=== PATIENT | female | born 1995 | race Caucasian/White ===

== ENCOUNTER 2022-02-06 12:46 | Outpatient (CLI) | payer OTHER, SELFPAY ==
--- NOTE | 2022-02-06 13:00 | CRLHL7_ITS ---
For Patients: As a result of the Century Cures Act, medical imaging exams and procedure reports are released immediately into your electronic medical record. You may view this report before your referring provider. If you have questions, please contact your health care provider. CLINICAL HISTORY: Early TECHNIQUE: 2D martin scale and color Doppler images were acquired of the pelvis using a transvaginal approach. FINDINGS: There is no intrauterine or ectopic . Both ovaries are normal. Right ovary measures 3.3 x 2.2 x 2.3 cm. Left ovary measures 2.8 x 2.0 x 2.2 cm. No pelvic free fluid or adnexal mass. No uterine fibroid. Small cervical nabothian cysts. Endometrial thickness 9 millimeters. IMPRESSION: No intrauterine or ectopic . Dictated by Mehul Underwood MD @ 02/06/2022 1:52:03 PM (Electronically Signed)
== END 2022-02-06 12:47 | disposition home or self-care (01) ==
LOC: US 12:47
PROVIDERS: Visit Provider Advanced Practice Midwife
DX: Z34.91 Encounter for supervision of normal pregnancy, unspecified, first trimester (principal)
CPT/HCPCS: 76817

== ENCOUNTER 2022-02-06 14:08 | Outpatient (CLI) | payer SELFPAY ==
[2022-02-06 17:28] LABS: HCG Qualitative Serum* Positive (Negative)
== END 2022-02-06 14:09 | disposition home or self-care (01) ==
PROVIDERS: Visit Provider Advanced Practice Midwife
DX: Z34.91 Encounter for supervision of normal pregnancy, unspecified, first trimester (principal); O03.9 Complete or unspecified spontaneous abortion without complication
CPT/HCPCS: 76817; 84443; 84703; 86900; 86901

== ENCOUNTER 2022-03-20 14:28 | Outpatient (CLI) | payer OTHER, SELFPAY | END 2022-03-20 14:29 | disposition home or self-care (01) | LOC: NFLDREF 15:23 | PROVIDERS: Visit Provider Advanced Practice Midwife | DX: E03.9 Hypothyroidism, unspecified (principal) | CPT/HCPCS: 84443 ==

== ENCOUNTER 2022-09-04 07:13 | Outpatient (CLI) | payer OTHER, SELFPAY ==
--- NOTE | 2022-09-04 07:15 | CRLHL7_ITS ---
For Patients: As a result of the Century Cures Act, medical imaging exams and procedure reports are released immediately into your electronic medical record. You may view this report before your referring provider. If you have questions, please contact your health care provider. INDICATION: First trimester scan, establish dates. COMPARISON: None. TECHNIQUE: Real-time martin-scale imaging of the pelvis was performed. FINDINGS: Intrauterine gestational sac is present. There is a normal-appearing yolk sac. Mean sac diameter is 3.6 cm. Yolk sac measures 3.5 millimeters. Right ovary normal. Left ovary unremarkable. heart rate 171 beats per minute. Bradner-rump length 2.2 cm, 9 weeks 0 days. IMPRESSION: Normal first trimester OB ultrasound exam. Gestational age calculated at 9 weeks 0 days with a sonographic due date of 04/09/2023. Dictated by Mehul Underwood MD @ 09/04/2022 10:41:11 AM (Electronically Signed)
== END 2022-09-04 07:14 | disposition home or self-care (01) ==
LOC: US 07:15
PROVIDERS: Visit Provider Advanced Practice Midwife
DX: Z34.91 Encounter for supervision of normal pregnancy, unspecified, first trimester (principal); Z3A.09 9 weeks gestation of pregnancy
CPT/HCPCS: 76817; 84443; 86592; 86703; 86762; 86787; 86803; 86850; 86900; 86901; 87086; 87340

== ENCOUNTER 2022-12-17 13:42 | Outpatient (CLI) | payer OTHER, SELFPAY | END 2022-12-17 13:43 | disposition home or self-care (01) | PROVIDERS: Visit Provider Physician Assistant | DX: E03.9 Hypothyroidism, unspecified (principal) | CPT/HCPCS: 84439; 84443 ==

== ENCOUNTER 2023-01-15 12:58 | Outpatient (CLI) | payer OTHER, SELFPAY ==
--- NOTE | 2023-01-15 13:00 | CRLHL7_ITS ---
For Patients: As a result of the Century Cures Act, medical imaging exams and procedure reports are released immediately into your electronic medical record. You may view this report before your referring provider. If you have questions, please contact your health care provider. INDICATION: Third trimester scan, evaluate growth. COMPARISON: 11/19/2022 TECHNIQUE: Real time martin scale imaging of the fetus was performed. FINDINGS: Sonographic imaging demonstrates a single living intrauterine gestation. Fetus demonstrates a regular cardiac rate of 154 beats per minute. Fetus has a transverse position. The placenta lies anteriorly. Amniotic fluid volume appears normal and there is a single deepest vertical pocket: 5.8 cm. The estimated weight is 1190gm which lies at the 29th %. On the prior OB ultrasound exam dated 11/19/2022 the estimated weight was at the 40th%. BPD 86th percentile. HC 51st percentile. AC 22nd percentile. FL 29th percentile. The HC/AC ratio measures 1.16 range (0.99-1.21). IMPRESSION: Sonographic gestational age 28 weeks 6 days and sonographic due date of 04/03/2023. Good correlation with dates. Estimated weight 29th percentile. Abdominal circumference 22nd percentile. Dictated by Mehul Underwood MD @ 01/18/2023 11:02:17 AM (Electronically Signed)
== END 2023-01-15 12:59 | disposition home or self-care (01) ==
LOC: US 13:00
PROVIDERS: Visit Provider Physician Assistant
DX: Z34.93 Encounter for supervision of normal pregnancy, unspecified, third trimester (principal); Z3A.28 28 weeks gestation of pregnancy
CPT/HCPCS: 76816; 84443; 86592

== ENCOUNTER 2023-01-21 07:56 | Outpatient (CLI) | payer OTHER, SELFPAY | END 2023-01-21 07:57 | disposition home or self-care (01) | LOC: NFLDREF 01-22 14:02 | PROVIDERS: Visit Provider Advanced Practice Midwife | DX: R73.09 Other abnormal glucose (principal); Z34.93 Encounter for supervision of normal pregnancy, unspecified, third trimester | CPT/HCPCS: 82951; 82952 ==

== ENCOUNTER 2023-02-05 12:01 | Outpatient (CLI) | payer OTHER, SELFPAY ==
--- NOTE | 2023-02-05 12:15 | CRLHL7_ITS ---
For Patients: As a result of the Century Cures Act, medical imaging exams and procedure reports are released immediately into your electronic medical record. You may view this report before your referring provider. If you have questions, please contact your health care provider. INDICATION: MARGINAL CORD INSERTION, GROWTH COMPARISON: 01/15/2023 TECHNIQUE: Real time martin scale imaging of the fetus was performed. FINDINGS: Sonographic imaging demonstrates a single living intrauterine gestation. Fetus demonstrates a regular cardiac rate of 142 beats per minute. Fetus has a vertex position. The placenta lies anteriorly. Amniotic fluid volume appears normal and there is a single deepest vertical pocket: 6.5 cm. The estimated weight is 1852gm which lies at the 53rd %. On the prior OB ultrasound exam dated 01/15/2023 the estimated weight was at the 29th%. BPD 90th percentile. HC 76th percentile. AC 65th percentile. FL 17th percentile. The HC/AC ratio measures 1.09 range (0.96-1.13). IMPRESSION: Sonographic gestational age 32 weeks 3 days and sonographic due date 03/30/2023. Sonographic age is 7 days ahead of the clinical age. Estimated weight 53rd percentile. Abdominal circumference 65th percentile. Dictated by Mehul Underwood MD @ 02/05/2023 12:36:25 PM (Electronically Signed)
== END 2023-02-05 12:02 | disposition home or self-care (01) ==
LOC: US 12:01
PROVIDERS: Visit Provider Advanced Practice Midwife
DX: O43.193 Other malformation of placenta, third trimester (principal); Z3A.32 32 weeks gestation of pregnancy
CPT/HCPCS: 76816

== ENCOUNTER 2023-02-22 10:34 | Outpatient (CLI) | payer OTHER, SELFPAY | END 2023-02-22 10:35 | disposition home or self-care (01) | LOC: NFLDREF 10:34 | PROVIDERS: Visit Provider Advanced Practice Midwife | DX: Z34.93 Encounter for supervision of normal pregnancy, unspecified, third trimester (principal); Z3A.33 33 weeks gestation of pregnancy | CPT/HCPCS: 84443 ==

== ENCOUNTER 2023-03-09 08:08 | Outpatient (CLI) | payer OTHER, SELFPAY ==
--- NOTE | 2023-03-09 08:15 | CRLHL7_ITS ---
For Patients: As a result of the Century Cures Act, medical imaging exams and procedure reports are released immediately into your electronic medical record. You may view this report before your referring provider. If you have questions, please contact your health care provider. INDICATION: Third trimester scan, evaluate growth. Marginal cord insertion followup. COMPARISON: 02.05.23 TECHNIQUE: Real time martin scale imaging of the fetus was performed. FINDINGS: Sonographic imaging demonstrates a single living intrauterine gestation. Fetus demonstrates a regular cardiac rate of 152 beats per minute. Fetus has a vertex position. The placenta lies anterior. Amniotic fluid volume appears normal and there is a single deepest vertical pocket: 6.7 cm. The estimated weight is 3316gm which lies at the 92nd %. On the prior OB ultrasound exam dated 02.05.23 the estimated weight was at the 53rd%. BPD 97th percentile. HC 93rd percentile. AC <97th percentile. FL 5th percentile. The HC/AC ratio measures 0.98 range (0.90-1.05). IMPRESSION: Sonographic gestational age 37 weeks 5 days and sonographic due date 03.25.23. The sonographic age is 12 days ahead of the clinical age. Estimated weight 92nd percentile. AC <97th percentile. Dictated by Mehul Underwood MD @ 03/09/2023 11:44:21 AM (Electronically Signed)
== END 2023-03-09 08:09 | disposition home or self-care (01) ==
LOC: US 08:09
PROVIDERS: Visit Provider Advanced Practice Midwife
DX: O43.193 Other malformation of placenta, third trimester (principal); Z3A.37 37 weeks gestation of pregnancy
CPT/HCPCS: 76816; 87081; 87653

== ENCOUNTER 2023-03-26 09:45 | Outpatient (CLI) | payer OTHER, SELFPAY ==
[2023-03-26 10:00] VITALS: PULSE 115; O2SAT 97
[2023-03-26 10:02] VITALS: BP 124/69; PULSE 106
[2023-03-26 10:16] VITALS: BP 124/74; PULSE 131
[2023-03-26 10:29] VITALS: PULSE 69; O2SAT 96
[2023-03-26 10:31] VITALS: BP 119/68; PULSE 90
--- NOTE | 2023-03-26 14:19 | PC.OBNST ---
NST Note NST Note Start: 03/26/23 10:16 Freq: ONCE Status: Active Protocol: Document 03/26/23 14:12 PRASHANT (Rec: 03/26/23 14:17 PRASHANT [id number]) NST Note 2 Para (# of births) 0 EDC 04/06/23 Gestational Age In Weeks & Days 38 Weeks & 3 Days High Risk Factors High Blood Pressure - Gestational Patient Presented with Complaint(s) of Headache Other Complaints Patient reported a CEBALLOS at home and high blood pressure readings from a home BP cuff. BP was within normal limits in hospital. It was noted that patient was using a family members BP cuff. A new cuff supplied. Patient will follow up in clinic Wednesday03/29/2023 Reactive Yes MILTON Crews RN Date 03/26/23 Reactive Yes MILTON Lopez RN Date 03/26/23 OB NST charge Yes Complete NST Note via Write Note Yes The provider's electronic signature indicates the NST is reactive/appropriate for gestational age. *Note to provider: If an addendum is required, open the patient's chart and click on the note under the Nurse/Allied Health tab.
== END 2023-03-26 11:40 | disposition home or self-care (01) ==
LOC: OB OUT 09:46 → OB 09:46
PROVIDERS: Visit Provider Advanced Practice Midwife
DX: O13.3 Gestational [pregnancy-induced] hypertension without significant proteinuria, third trimester (principal); R51.9 Headache, unspecified; Z3A.38 38 weeks gestation of pregnancy
CPT/HCPCS: 59025; 99213

== ENCOUNTER 2023-04-01 13:00 | Inpatient (IN) | payer OTHER, SELFPAY ==
[2023-04-01] VITALS (14 sets, daily range): BP systolic 121–154; BP diastolic 67–90; PULSE 81–116; RESP 16; TEMP 36.6–36.8; O2SAT 98; BMI 41.4
[2023-04-01 11:01] LABS: Hematocrit 39.2 % (33.0-51.0); Mean Corpuscular HGB Conc 33 gm/dL (32-36); Mean Corpuscular Hemoglobin 28 pg (26-34); Mean Corpuscular Volume 84 fL (80-100); Platelet Count* 245 K/uL (140-440); Red Blood Count 4.68 m/uL (4.00-5.20); White Blood Count* 10.84 K/uL (4.50-11.00)
[2023-04-01 11:09] LABS: Slide Review Reflex No
[2023-04-01 11:58] LABS: Alanine Aminotransferase* 16 U/L (4-35); Aspartate Amino Transferase* 27 U/L (12-35); Blood Urea Nitrogen* 4 mg/dL (5-24); Creatinine* 0.7 mg/dL (0.5-1.5); Estimated Glomerular Filt Rate 122 ml/min
[2023-04-01 12:11] LABS: Total Protein Urine 7 mg/dL
[2023-04-01 12:12] LABS: Creatinine Urine 83.2 mg/dL
--- NOTE | 2023-04-01 13:52 | P.LDBA_ITS ---
Subjective History of Present Illness Time Seen by Provider: 12:45 Date Seen: 04/01/23 Specific Issues/Plans Partner-Kendell H & P done 03/18/23 by Adrian Rosen IOL for dates 04/13 1. Depression/Anxiety Taking Bupropion 150mg, not currently doing therapy, stable 2. Hypothyroid on Synthroid 75mcg TSH first-trimester 09/04/22: 2.58 TSH second-trimester 12/17/22: TSH 4.330, free T4 0.75. Increase Synthroid to 100 mcg daily recheck in 4 weeks TSH recheck at 28 weeks: 1.77 TSH 3rd trimester: increased, recheck in 4 weeks 3. ADHD was on Concerta prior to , discussed restarting if she wants if anxiety is worsening does not have provider currently managing this 4. Recommended ASA (BMI and prime) 5. Marginal cord insertion. Growth US Q4 wks starting at 28-32 weeks. 28 weeks: 29%ile 6. Failed 1hr GTT (150). 3hr completed, passed all 4 values. 7. Covid positive at 34 weeks. Growth u/s at 36 weeks: EFW 92%, SDP 6.7, AC >97% COVID: vaccinated 2020, not boosted Flu: 09/04/2022 Tdap: 01/28/2023 32wk Mental Health: 02/05/2023 Comments: Slime is being admitted to Labor and Delivery for gestational hypertension. She is a 27 year old G 2 P 0010 at?39.2 weeks gestation. Her full history and physical was dictated by Adrian Rosen on 03/18/23. Please see this for details. Slime has been being followed closely in the clinic. She recently has had increased swelling, weight gain, and blood pressures were noted to be trending upward, but remained in the 130/80s. She has been monitoring BPs at home also, and they are frequently elevated, but it is thought that her cuff is not accurate (it has been compared to the clinic one). She presents today in clinic with a BP of 131/91. She was sent to L & D for further monitoring, where further BPs primarily in the 140s/90s range. Her labwork at this time, including a PC ratio, remains WNL. We reviewed the diagnosis of gestational hypertension and recommendation for IOL. She is agreeable to this plan. Her father is with her for support at this time, but her partner and mom will also be coming soon. She is planning an epidural for pain management. OB - Problem Based A/P Additional Plan (1) Encounter for induction of labor: Status: Acute (2) Gestational hypertension: Status: Acute (3) Supervision of normal first : Status: Acute Plan Assessment:? at 39.2 weeks gestation?? GBS Positive IOL for gestational hypertension complicated by: -Depression & anxiety -hypothyroid -ADHD, medication stopped in -marginal cord insertion -covid in Labor complicated by: -Gestational hypertension -EFW at 36 weeks 92% ? Plan:?? * Admit to L & D? * IOL for gestational hypertension. Options previously reviewed, decision made to proceed with cytotec. * IV access: saline lock for elevated BP and GBS * Monitoring: Continuous monitoring for elevated BP * Candidate for analgesia of choice.? Planning epidural for pain management * Start antibiotics for GBS prophylaxis when she starts becoming more active * Anticipate progress to NVD Delivery/Labor/Induction Plan Plan: induction Induction method: per misoprostol protocol OB Exam Physical Exam Vital signs: Pulse BP Pulse Ox 86 138/87 98 04/01/23 13:12 04/01/23 13:12 04/01/23 10:51 Narrative: VSS, afebrile? General Appearance:? Calm, cooperative.? No acute distress.? Normal affect.? Psychiatric Exam: Alert and oriented, appropriate affect? HEENT: normocephalic, neck supple, full ROM? Respiratory:? Symmetrical chest wall movement.? Normal respiratory effort.? Clear to auscultation? Cardiac:? regular rate and rhythm? Abdomen: Gravid, non tender? Extremities:? normal and +1 edema? Skin: warm, dry.??? Ctx:? mild, rare FHTs:? Baseline: 150.? Variability: min - mod.?? Accels: present.??? Decels:? none.? SVE: 1-2/80/-2, moderate, posterior? Membranes: intact? Detailed Labor and Delivery Exam Patient Gravid: Yes
[2023-04-01] MEDS: miSOPROStoL 25 MCG/0.25 TABLET VAGINAL ×4 (14:11→23:35)
[2023-04-02] VITALS (39 sets, daily range): BP systolic 106–135; BP diastolic 69–88; PULSE 61–111; RESP 12–18; TEMP 36.2–37.1; O2SAT 96–100
[2023-04-02] MEDS: miSOPROStoL 25 MCG/0.25 TABLET VAGINAL (02:36)
[2023-04-02] MEDS: LACTATED RINGERS 1000 ML 1,000 ML IV ×2 (02:58→06:42)
[2023-04-02] MEDS: LIDOCAINE 2% (PF) 5 ML VIAL EPIDURAL (03:45)
[2023-04-02] MEDS: ROPIVACAINE 0.2% 100 ml 100 ML 12 MG EPIDURAL (03:45)
--- NOTE | 2023-04-02 03:51 | P.ANBPRC_ITS ---
[facility] Medical History Hypothyroidism ?E03.9 - Hypothyroidism, unspecified (ICD-10) ADHD ?F90.9 - Attention-deficit hyperactivity disorder, unspecified type (ICD-10) Depression ?F32.A - Depression, unspecified (ICD-10) Surgical History History of thumb surgery ?Z98.890 - Other specified postprocedural states (ICD-10) Family History Mother Colon cancer Grandmother Colon cancer Social History Narrative: SOCIAL?? Education: some college?? Work: [employer]?? Partner: Kendell, public address system mechanic between jobs?? Lives with: Kendell?? Pets: 2 dogs, 3 cats and rabbit, not changing cat litter?? Abuse: Denies past/present?? Special Diet: No lactose?? Ok with a blood transfusion: yes?? Culture or synagogue beliefs: denies?? RISK FACTORS?? Exercise Times/wk: job is exercise?? Depression/Anxiety: History of depression/anxiety since she was a child?? ANNAMARIA: 11 PHQ 9: 9?? Seat Belt Use: Routinely Smoking: Denies past/present?? Alcohol/day: Denies while ?? Caffeine: none?? Drug Use: Denies past/present?? Chicken Pox: Yes as a child?? MRSA: Denies?? Plan for feeding baby: Breast What is your current living situation?: I presently have a place to live Problems where you live: no known problems In the past 12 months, utilities in danger of being shut off: no In past 12 months, lack of transportation kept you from medical appts, meetings, work, or getting things needed for daily living: no In the past 12 mos, have been you worried that your food would run out before you had money to buy more?: never true In the past 12 mos, the food you bought just didn't last and you didn't have money to buy more?: never true Smoking Status: Former smoker How often does anyone, including family, friends and others, physically hurt you : never How often does anyone, including family, friends and others, insult or talk down to you: never How often does anyone, including family, friends and others, threaten you with harm: never How often does anyone, including family, friends and others, scream or curse at you: never Little interest or pleasure in doing things: several days Feeling down, depressed, or hopeless: not at all Meds Home Medications and Allergies Home Medications Medication Instructions Recorded Confirmed Type prenat.vits,ilana,cee-fiwq-ouqct 1 tab PO QDAY 09/04/22 04/01/23 History aspirin 81 mg tablet,delayed 81 mg PO QDAY 11/19/22 04/01/23 History release (Adult Aspirin Regimen) famotidine 20 mg tablet 20 mg PO QDAY 03/29/23 04/01/23 History (Zantac-360 (famotidine)) Allergies Allergy/AdvReac Type Severity Reaction Status Date / Time lactose AdvReac Mild Gastrointestinal Verified 04/01/23 09:52 Upset Penicillins AdvReac Mild Hives Verified 04/01/23 09:52 oranges AdvReac Mild Hives Uncoded 04/01/23 09:52 Results Labs Labs: Laboratory Results - last 24 hr 04/01/23 04/01/23 10:38 10:50 WBC 10.84 RBC 4.68 Hgb 13.0 Hct 39.2 MCV 84 MCH 28 MCHC 33 Plt Count 245 BUN 4 L Creatinine 0.7 Estimated GFR 122 AST 27 ALT 16 Urine Creatinine 83.2 Protein/Creatinin Ratio 0.00 Urine Total Protein 7 Vital Signs Vital Signs: Last Vital Signs Temp 98 F 04/01/23 23:35 Pulse 97 04/02/23 03:49 Resp 16 04/01/23 17:32 BP 122/69 04/02/23 03:49 Pulse Ox 98 04/01/23 10:51 Weight: 112.945 kg Height: 165.1 cm Anesthesia Procedures Epidural Insertion Patient Location: OB Start Time: 03:15 Stop Time: 04:00 Start Date: 04/02/23 Stop Date: 04/02/23 Reason for Block: primary anesthetic Patient Position: sitting Performed By: Kendell Reed Preanesthetic Checklist: IV checked, risks and benefits discussed, surgical consent, monitors and equipment checked, pre-op evaluation, timeout performed and anesthesia consent Prep: chlorhexidine gluconate Monitoring: blood pressure monitoring, cardiac specialist, continuous pulse oximetry and heart rate Approach: midline Vertebral Space: lumbar (1-5) Needle Type: Tuohy needle Injection Technique: continuous catheter (catheter) Needle gauge: 17 Needle Length (cm): 10 cm Needle Insertion Depth (cm): 8 Catheter Gauge: 19 Catheter Type: multi-orifice Catheter at skin depth (cm): 13 Test Dose Result: negative and lidocaine 1.5% with epinephrine 1 to 200,000
[2023-04-02] MEDS: PHENYLEPHRINE 100 MCG/ML SYRINGE IVP ×2 (03:57→03:59)
--- NOTE | 2023-04-02 05:14 | PM.OBPNL ---
Subjective Time Seen by Provider: 05:16 Date Seen: 04/02/23 Narrative: Halo received from RN. Pt received another dose of cytotec, dilated to 5 cm, and requesting epidural. Permission given to proceed with epidural, and CNM headed in to hospital. Upon arrival, epidural just being placed. Shortly after epidural placed, decels noted in the FHR. 4 decels lasting about 80 seconds each, nadirs 80-100. FHR down to the 70s X 8 minutes. Pt repositioned to right side, left side and hands and knees with little improvement. Phenylephrine given IVP by RN. Scalp stim attempted with no improvement. SVE 3-/90/-1. Code white called at that time. Pt moved to the OR, where FHR noted to have improved to 140s. Code white status cancelled. Subtle decels, possible early or lates noted. Difficult to trace ctx r/t position/maternal habitus, unable to determine type of decels. Dr. Mcadams at OR bedside. Descision made to proceed with based on prolonged decel and continued possible late decelerations. Slime agreeable to plan. Objective Exam: VSS, afebrile General Appearance:? Calm, cooperative. No acute distress. ? Psychiatric Exam: Alert and oriented, appropriate affect Abdomen: Gravid Ctx: ?Q 2-4 min apart. ? Moderate FHTs: Baseline: 155. Variability: moderate. Accels: present. Decels: See note, present. SVE: 3-/-1 Membranes: intact ? Vital Signs: Last Vital Signs Temp 98 F 04/01/23 23:35 Pulse 74 04/02/23 03:53 Resp 16 04/01/23 17:32 BP 120/77 04/02/23 03:53 Pulse Ox 98 04/01/23 10:51 Plan Plan: Assessment:?? at 39.3 gestation?? GBS positive Patient is coping well with challenges of labor.?? Labor type: Induced, Early labor? complicated by: -Depression & anxiety -hypothyroid -ADHD, medication stopped in -marginal cord insertion -covid in Labor complicated by: -Gestational hypertension -EFW at 36 weeks 92% ? Plan:?? intolerance of labor post epidural placement Dr. Mcadams consulted. Decision made to proceed with
[2023-04-02 05:17] LABS: Basophils Percent Auto 0.1 % (0.0-3.0); Eosinophils Percent Auto 0.3 % (0.0-7.0); Hematocrit 38.3 % (33.0-51.0); Hemoglobin* 12.4 gm/dL (12.0-16.0); Immature Granulocytes Pct Auto 0.8 %; Mean Corpuscular HGB Conc 32 gm/dL (32-36); Mean Corpuscular Hemoglobin 28 pg (26-34); Mean Corpuscular Volume 86 fL (80-100); Monocytes Percent Auto 6.1 % (0.0-11.0); Neutrophils Percent Auto 81.7 % (42.0-72.0); Platelet Count* 222 K/uL (140-440); RDW Coefficient of Variation % 12.9 % (11.5-15.5); Red Blood Count 4.46 m/uL (4.00-5.20); White Blood Count* 12.96 K/uL (4.50-11.00)
[2023-04-02 05:18] LABS: Slide Review Reflex No
--- NOTE | 2023-04-02 06:05 | P.OBPRC_ITS ---
Procedure Date of procedure: 04/02/23 Pre-op diagnosis: Non-reassuring heart rate Post-op diagnosis: same Procedure Done: Global Will [facility] bill your pro fee for this procedure?: Yes Blood Loss Measurement Type: QBL (0884) Bakri Used: No IV fluids (mL): 1,700 Surgeon: Neha Mcadams MD Anesthesia type: General Findings: 1. Male , cephalic OA presentation, Apgars of 8 and 9, weight 3960 g, or 8 lb, 12 oz. 2. Filmy adhesion of the left fallopian tube to the bowel. Otherwise normal appearance to uterus, bilateral tubes and ovaries. Procedure Name: Primary low-transverse Procedure Description: Patient was taken to the operating room with IV running. She received cefazolin and azithromycin in preoperative prophylaxis. Epidural anesthesia had previously been administered. Rodriguez catheter was inserted. She was prepped and draped in the usual sterile fashion. Anesthesia was tested and found to be inadequate. After several attempts to re-dose epidural, decision was made to proceed with general anesthesia. A low-transverse skin incision was made with a scalpel and carried through to the underlying layer of fascia with the scalpel. The subcutaneous fat was dissected off the underlying fascia bluntly. The fascia was nicked in the midline with a scalpel, and this incision was extended laterally with a combination of blunt dissection and scissors. The rectus muscles were in the midline. Peritoneum was identified and entered bluntly. Scissors were used to widen this opening laterally. Hunter O retractor was inserted and tightened down, providing excellent visualization of the lower uterine segment. The bladder reflection was found to be well below the planned site for hysterotomy. Low-transverse uterine incision was made with a scalpel. Incision was widened bluntly. The infant's head was grasped through the hysterotomy and delivered with the help of fundal pressure. The remainder of the body delivered without incident. Cord was clamped and cut after approximately 30 seconds. Infant was handed off to attending nurses. The placenta was delivered with gentle traction on the cord. The uterus was cleaned of all clots and debris with the dry lap pad. Uterus was exteriorized. Uterine tone was noted to be poor and bleeding was initially brisk. Patient was given Pitocin, and uterine atony was addressed with uterine massage and a single dose of Methergine. The hysterotomy was reapproximated with 0 Vicryl in a running, locked fashion. Electrocautery was used along the raw edge of the peritoneal reflection inferior to the hysterotomy to obtain hemostasis. The adhesion of the left fallopian tube to the bowel was lysed in its midportion, well away from the bowels. The adnexa were examined and noted to be normal in appearance. The cul-de-sac and gutters were cleansed with dampened laparotomy sponge, removing any further clots and debris. Irrigation was used posterior to the uterus due to meconium in the peritoneal cavity. The uterus was returned to the abdomen. The Hunter O retractor was removed. The hysterotomy was reexamined and found to be hemostatic. The peritoneum was reapproximated with 2 0 Vicryl in a running fashion. The rectus muscles were examined and there was a site of persistent bleeding near the superior aspect of the incision. Ultimately, this was addressed with a [id number] suture of chromic. The fascia was reapproximated with 0 Vicryl in a running fashion. Subcutaneous fat was irrigated and found to be hemostatic. The subcutaneous fat was reapproximated with 2 0 plain gut suture in an interrupted fashion. The skin was closed with a subcuticular stitch of 4-0 Monocryl. Steri-Strips were applied above this, followed by a silver dressing. I requested a nerve block for enhanced postoperative pain control. Patient tolerated procedure well was taken to recovery area in stable condition. Complications: None
[2023-04-02] MEDS: fentaNYL 100 MCG/2 ML inj 50 MCG IVP ×2 (06:13→06:20)
--- NOTE | 2023-04-02 06:22 | W.PM.NB ---
Nerve Block Nerve Block Time Seen by Provider: 06:10 Date Seen: 04/02/23 Type of block requested by surgeon for post-operative analgesia: TAP Side: bilateral Time out performed: Yes Verification of patient name: Yes Verification of date of : Yes Site marking: site marked Name of person performing procedure: Kendell Reed Continuous monitoring Was continuous monitoring of O2 sat, B/P, property assessment monitor, recorded every 15 minutes?: Yes Procedure Checklist: sterile prep, needles and gloves Ultrasound guided. Images saved: Yes Medications given in 5ml increments after negative aspiration: Marcaine %: 0.25 mL: 30 Needle gauge: 20 and Exparel mL: 10 Needle gauge: 20 Patient tolerated procedure well: Yes Block Charges Block Charge (with Pro Fee): TAP Bilateral Use of Ultrasound Machine for Block: Yes- US Guidance/pain block
--- NOTE | 2023-04-02 06:23 | W.ANESCHARGE ---
Anesthesia Charges Start Date/Time Anesthesia Start Date: 04/02/23 Anesthesia Start Time: 04:04 Stop Date/Time Anesthesia Stop Date: 04/02/23 Anesthesia Stop Time: 06:15 Summary Emergency: [employer]
[2023-04-02] MEDS: ACETAMINOPHEN 500 MG TABLET 1000 MG PO (08:41)
[2023-04-02 10:10] LABS: Basophils Percent Auto 0.1 % (0.0-3.0); Hematocrit 34.9 % (33.0-51.0); Hemoglobin* 10.9 gm/dL (12.0-16.0); Immature Granulocytes Pct Auto 0.3 %; Lymphocytes Percent Auto 4.6 % (20-44); Mean Corpuscular HGB Conc 31 gm/dL (32-36); Mean Corpuscular Hemoglobin 28 pg (26-34); Mean Corpuscular Volume 88 fL (80-100); Monocytes Percent Auto 5.6 % (0.0-11.0); Neutrophils Percent Auto 89.4 % (42.0-72.0); Platelet Count* 192 K/uL (140-440); RDW Coefficient of Variation % 12.7 % (11.5-15.5); Red Blood Count 3.96 m/uL (4.00-5.20)
[2023-04-02 10:11] LABS: Slide Review Reflex No
[2023-04-02] MEDS: buPROPion XL 150 MG TABLET PO (11:17)
[2023-04-02] MEDS: LEVOTHYROXINE 112 MCG TABLET PO (11:18)
[2023-04-02] MEDS: KETOROLAC 30 MG/ML inj IVP ×2 (12:03→17:49)
[2023-04-02] MEDS: ENOXAPARIN 40 MG/0.4 ML INJ SUBCUT (17:49)
[2023-04-03] VITALS (12 sets, daily range): BP systolic 89–117; BP diastolic 47–74; PULSE 65–115; RESP 14–18; TEMP 36.6–36.9; O2SAT 94–98
[2023-04-03] MEDS: KETOROLAC 30 MG/ML inj IVP ×3 (00:07→12:09)
[2023-04-03 06:53] LABS: Hemoglobin* 8.7 gm/dL (12.0-16.0)
[2023-04-03] MEDS: LEVOTHYROXINE 112 MCG TABLET PO (08:20)
[2023-04-03] MEDS: buPROPion XL 150 MG TABLET PO (08:20)
--- NOTE | 2023-04-03 09:28 | PM.OBPNVD1 ---
OB - PN:Subj Subjective Time Seen by Provider: :28 Date Seen: 04/03/23 Interval history: Slime is a 27 y.o. who was admitted to [facility] & [facility] for IOL for gestational hypertension.? She had an uncomplicated primary for intolreance of labor.? ? ? Narrative: The patient feels well.? The pain is well controlled with current medications.? She has no new complaints.? She is breast feeding and reports that she fels as though they are getting the hang of it.? the patient has done well.? Vitals have been stable.? She has remained afebrile.? Has a good appetite, is tolerating a general diet.? She is voiding without difficulty.? She is passing gas and has not had a bowel movement.? She is ambulating and denies any dizziness.? Has Small amount of rubra lochia.? OB - PN: Obj Exam Physical Exam: Vital signs: Temp Pulse Resp BP Pulse Ox O2 Del Method 98.0 F 89 17 107/71 97 Room Air 04/03/23 07:25 04/03/23 07:25 04/03/23 07:25 04/03/23 07:25 04/03/23 07:25 04/03/23 07:25 Narrative: VSS.? Afebrile? GENERAL APPEARANCE:? normal affect, alert, no distress? MOOD:? appropriate? HEENT: normocephalic, neck supple, full ROM? CHEST:? Symmetrical chest wall movement.? Normal respiratory effort.? Clear to auscultation? HEART:? regular rate and rhythm? ABDOMEN:? soft, non-tender. Uterine fundus is firm, at Umbilicus, Midline and is appropriate for the stage of recovery.? Bowel sounds present.? EXTREMITIES:? normal and +1 edema? SKIN: warm, dry.? Dressing on, dry/intact. Small amount of shadowing noted in center of dressing.? ? No signs of infection noted.? Urinary Catheter Management: Urethral: Cath placed during this visit: yes, but has since been removed by the nurse Reason for continuing: decision to DC catheter Insertion date: 04/02/23 Insertion time: 04:33 Removal date: 04/02/23 Removal time: 14:00 OB - PN: Obj Data Labs Labs: Laboratory Results - last 24 hr 04/02/23 04/03/23 09:55 06:29 WBC 17.90 H RBC 3.96 L Hgb 10.9 L 8.7 L Hct 34.9 MCV 88 MCH 28 MCHC 31 L RDW Coeff of Buzz 12.7 Plt Count 192 Neut % (Auto) 89.4 H Lymph % (Auto) 4.6 L [place] % (Auto) 5.6 Eos % (Auto) 0.0 Baso % (Auto) 0.1 Neut # (Auto) 16.00 H Lymph # (Auto) 0.80 L [place] # (Auto) 1.00 H Eos # (Auto) 0.00 Baso # (Auto) 0.00 Abs Immat Gran (auto) 0.10 Imm/Tot Granulo (auto) 0.3 OB - PN: A/P Delivery Assessment and Plan (1) Status post primary low transverse section: Status: Acute (2) Lactating mother: Status: Acute (3) Gestational hypertension without significant proteinuria, : Status: Acute Plan day: 1 Plan: routine care Comments: Assessment/Plan? G 2 P 1 status post uncomplicated primary .? ?? 1.? Continue route PP cares? 2.? .? May see if desired? 3.? Anticipate discharge home tomorrow or the following day per pt preference? 4.? Acute anemia.? Iron supplement ordered 5. Gestational hypertension -BPs remain WNL at this time. -Continue to monitor. Will plan follow up visit within 3-5 days of discharge?
[2023-04-03] MEDS: DOCUSATE SODIUM 100 MG CAPSULE PO (10:44)
[2023-04-03] MEDS: FERROUS SULFATE 325 MG TABLET PO (10:45)
[2023-04-03] MEDS: ENOXAPARIN 40 MG/0.4 ML INJ SUBCUT (18:03)
[2023-04-03] MEDS: IBUPROFEN 600 MG TABLET PO (18:03)
[2023-04-04 00:49] VITALS: BP 108/70; PULSE 103; RESP 16; TEMP 36.7; O2SAT 98
[2023-04-04 04:12] VITALS: BP 114/76; PULSE 66; RESP 14; TEMP 36.9; O2SAT 97
[2023-04-04 07:58] VITALS: BP 107/74; PULSE 97; RESP 15; TEMP 36.9; O2SAT 97
--- NOTE | 2023-04-04 08:33 | PM.OBDSVD1 ---
DS: Providers Provider Date Seen: 04/04/23 Date of admission: 04/01/23 13:00 Primary care physician: Not a Local Provider Admitting Clinician: Dorota Bullock CNM Consults: 04/02/23 05:13 Consult to Physician [CONS] Routine Comment: Consulting Provider: Neha Mcaadms Has provider been notified: Yes Attending Physician on discharge: Daisy Hutton APRN, CNM DS: Diagnosis Discharge Diagnosis (1) care and examination immediately after delivery: Status: Acute (2) Lactating mother: Status: Acute (3) Gestational hypertension without significant proteinuria, : Status: Acute (4) Status post primary low transverse section: Status: Acute Exam Narrative: Exam Narrative: GENERAL APPEARANCE:? normal affect, alert, no distress MOOD:? appropriate CHEST:? clear to auscultation HEART:? regular rate and rhythm ABDOMEN:? soft, non-tender the uterine fundus is At Umbilicus, Midline and is appropriate for the stage of recovery. EXTREMITIES:? normal and no edema INCISION: Dressing in place, old drainage present. Dry and intact. Const: Vital Signs, click to edit/add: Vital Signs - 24 hr 04/03/23 10:48 04/03/23 14:41 04/03/23 19:48 Temperature 98.0 F 97.9 F Pulse Rate [Right Pulse Oximeter] 80 82 115 H Respiratory Rate 16 16 18 Blood Pressure [Le ft Arm] 106/69 107/70 117/68 Pulse Oximetry 98 98 97 Oxygen Delivery Me thod Room Air Room Air Room Air 04/04/23 00:49 04/04/23 04:12 04/04/23 07:58 Temperature 98.1 F 98.5 F 98.5 F Pulse Rate [Right Pulse Oximeter] 103 H 66 97 Respiratory Rate 16 14 15 Blood Pressure [Le ft Arm] 108/70 114/76 107/74 Pulse Oximetry 98 97 97 Oxygen Delivery Me thod Room Air Room Air Room Air Documenting provider has reviewed patient's vital signs: yes OB - DS: Summary Hospital Course Hospital Course: Slime is a 27 y.o. G 2 P 1011 who was admitted to L & D for induction of labor for gestational hypertension. Labor was complicated by distess post epidural placement. ?She had a section complicated by hemorrhage. The patient feels well. ?The pain is well controlled with current medications. ?She has no new complaints. ?She is breast feeding and reports things are going well. the patient has done well.? Vitals have been stable.? She has remained afebrile.? Has a good appetite, is tolerating a general diet. ?She is voiding without difficulty.? She is passing gas and has not had a bowel movement.? She is ambulating and denies any dizziness.? Has small amount of rubra lochia. She is planning mini pill for prevention. Problems: Anemia plan: Discharge home with baby. Follow up in 2 weeks and 6 weeks. , may see if needed Hgb 8.7. Iron supplement ordered orally every other day Gestational Hypertension. WNL now. -Follow up in 3-5 days -Call for signs/symptoms of preeclampsia Silver dressing in place. Needs removal at 7 days post-delivery Peripartum Data delivery method: Primary C/S; Labored Procedures: Procedures Operation Date: 04/02/23 04:15 Actual Procedure Side Surgeon p LOW TRANSVERSE Section Neha Mcadams MD complications: none [place] Gender: Female Infant Discharge Plan: Home Status at Discharge Functional status at discharge: independent ambulation Overall status at discharge: patient is progressing back to baseline Time Spent with Patient Time attestation: Total time spent providing and/or coordinating discharge services: Discharge Plan Discharge Disposition: Home, Self-Care Date of Admission: 04/01/23 13:00 Attending Provider on Discharge: Daisy Hutton Consulting Providers: Neha Mcadams Primary Care Provider: Provider,Not a Local Condition: Stable Anticipated Discharge Date/Time: 04/04/23 12:00 Discharge Medications: New ferrous sulfate 325 mg (65 mg iron) Tablet 325 mg PO Q48H Qty: 90 0RF docusate sodium 100 mg Capsule 100 mg PO DAILY Qty: 90 0RF ibuprofen 600 mg Tablet 600 mg PO Q6H PRN (Reason: Pain) Qty: 60 0RF levothyroxine 75 mcg tablet 75 mcg PO DAILY Qty: 30 1RF acetaminophen 500 mg Tablet 1,000 mg PO Q6H PRN (Reason: Pain) Qty: 0 0RF Continued prenat.vits,ilana,rka-ewwe-zrcay Tablet 1 tab PO QDAY bupropion HCl [Wellbutrin XL] 150 mg tablet extended release 24 hr 150 mg PO QAM Qty: 90 2RF famotidine [Zantac-360 (famotidine)] 20 mg tablet 20 mg PO QDAY Discontinued aspirin [Adult Aspirin Regimen] 81 mg tablet,delayed release (DR/EC) 81 mg PO QDAY levothyroxine 112 mcg tablet 112 mcg PO QDAY Qty: 30 4RF Discharge Orders: Discharge Order (Routine); Ordered 04/04/23 Ordered By: Daisy Hutton Patient Education: OB /Breast Feeding, OB Over the Counter Medication Information Additional Instructions: Discharge instructions were reviewed with the patient including signs and symptoms of infection and home going medications Lifting Restrictions: 20 pounds for 6 weeks No not submerge incision under water X 2 weeks? Nothing vaginally for 6 weeks: no tampons or intercourse Do not drive while taking narcotic pain medication(s) Off Work or School for 8 weeks [facility] for [facility] BP check?3-5 Call with BP greater than or equal to 160/110 2-week visit: incision check, discuss feeding concerns, review control options and screen for anxiety/depression. 6-week visit for an annual exam. consultation services are available to all mothers and babies for the first year after delivery.? To make an appointment, please call [phone]. Activity Level: Activity as Tolerated Discharge Diet: Regular Follow Up Appointments: [facility] [Provider Group] Forms: MyHealth Info Instructions
[2023-04-04] MEDS: FERROUS SULFATE 325 MG TABLET PO (08:49)
[2023-04-04] MEDS: LEVOTHYROXINE 112 MCG TABLET PO (08:49)
[2023-04-04] MEDS: DOCUSATE SODIUM 100 MG CAPSULE PO (08:49)
[2023-04-04] MEDS: buPROPion XL 150 MG TABLET PO (08:49)
== END 2023-04-04 11:35 | disposition home or self-care (01) | DRG 787 ==
LOC: OB OUT 13:04 → OB 13:04
PROVIDERS: Obstetrics & Gynecology; Admitting Provider Advanced Practice Midwife; Visit Provider Advanced Practice Midwife
PROC: 10D00Z1 Extraction of Products of Conception, Low, Open Approach (ICD-10-PCS; CPT 59514; principal; 2023-04-02 04:00)
DX: O13.4 Gestational [pregnancy-induced] hypertension without significant proteinuria, complicating childbirth (principal); D62 Acute posthemorrhagic anemia; O76 Abnormality in fetal heart rate and rhythm complicating labor and delivery; O62.2 Other uterine inertia; O90.81 Anemia of the puerperium; O99.824 Streptococcus B carrier state complicating childbirth; Z86.16 Personal history of COVID-19; O99.284 Endocrine, nutritional and metabolic diseases complicating childbirth; E03.9 Hypothyroidism, unspecified; O99.344 Other mental disorders complicating childbirth; F41.9 Anxiety disorder, unspecified; F90.9 Attention-deficit hyperactivity disorder, unspecified type; F32.A Depression, unspecified; Z79.82 Long term (current) use of aspirin; Z37.0 Single live birth; Z3A.39 39 weeks gestation of pregnancy
CPT/HCPCS: 01967; 01968; 36415; 59200; 76942; 82565; 82570; 84156; 84450; 84460; 84520; 85018; 85025; 85027; 86850; 86900; 86901; 88307; 99140; A9270; C9290; J0330; J0665; J1650; J1885; J2210; J2274; J2371; J2405; J2590; J2704; J2710; J2795; J3010; J7120

== ENCOUNTER 2023-05-14 08:59 | Outpatient (CLI) | payer OTHER, SELFPAY | END 2023-05-14 09:00 | disposition home or self-care (01) | LOC: NFLDREF 08:59 | PROVIDERS: Visit Provider Advanced Practice Midwife | DX: Z39.2 Encounter for routine postpartum follow-up (principal) | CPT/HCPCS: 84443 ==

== ENCOUNTER 2023-12-08 08:34 | Outpatient (CLI) | payer BC, SELFPAY | END 2023-12-08 08:35 | disposition home or self-care (01) | PROVIDERS: Visit Provider Registered Nurse | DX: N91.2 Amenorrhea, unspecified (principal); E03.9 Hypothyroidism, unspecified | CPT/HCPCS: 82670; 83001; 84146; 84270; 84402; 84403; 84439; 84443 ==

== ENCOUNTER 2024-04-07 09:15 | Outpatient (CLI) | payer BC, SELFPAY | END 2024-04-07 09:16 | disposition home or self-care (01) | LOC: NFLDREF 04-08 16:11 | PROVIDERS: Visit Provider Registered Nurse | DX: E03.9 Hypothyroidism, unspecified (principal) | CPT/HCPCS: 84443 ==

== ENCOUNTER 2024-07-14 10:33 | Outpatient (CLI) | payer BC, SELFPAY ==
[2024-07-14 15:15] LABS: Chlamydia DNA Amplified* NOT DETECTED (No Detected); GC DNA Amplified* NOT DETECTED (No Detected)
[2024-07-16 20:27] LABS: HPV Source Cervix; HPV, High Risk by TMA Not Detected
== END 2024-07-14 10:34 | disposition home or self-care (01) ==
PROVIDERS: Visit Provider Registered Nurse
DX: R53.83 Other fatigue (principal); E03.9 Hypothyroidism, unspecified; E66.01 Morbid (severe) obesity due to excess calories; N91.1 Secondary amenorrhea; Z13.1 Encounter for screening for diabetes mellitus; Z13.6 Encounter for screening for cardiovascular disorders; Z11.3 Encounter for screening for infections with a predominantly sexual mode of transmission; Z12.4 Encounter for screening for malignant neoplasm of cervix; Z11.51 Encounter for screening for human papillomavirus (HPV); Z13.9 Encounter for screening, unspecified
CPT/HCPCS: 80061; 84443; 87491; 87591; 87624; 87625; 88141; 88142